=== PATIENT | female | born 1950 | race Caucasian/White ===

== ENCOUNTER → 2023-10-01 13:26 | Outpatient (REF) | payer MEDICARE, SELFPAY | LOC: HWRAD 13:26 | PROVIDERS: ATTENDING PHYSICIAN Internal Medicine Endocrinology, Diabetes & Metabolism; FAMILY PHYSICIAN Family Medicine | DX: Z12.31 Encounter for screening mammogram for malignant neoplasm of breast (principal); M81.0 Age-related osteoporosis without current pathological fracture | CPT/HCPCS: 77063; 77067; 77080 ==

== ENCOUNTER → 2023-11-05 12:38 | Outpatient (REF) | payer MEDICARE, SELFPAY | LOC: HWRAD 12:38 | PROVIDERS: ATTENDING PHYSICIAN Family Medicine | DX: J06.9 Acute upper respiratory infection, unspecified (principal); R05.1 Acute cough | CPT/HCPCS: 71046 ==

== ENCOUNTER → 2023-12-31 17:32 | Outpatient (REF) | payer MEDICARE, SELFPAY | LOC: PAVMRI 17:32 | PROVIDERS: ATTENDING PHYSICIAN Otolaryngology; FAMILY PHYSICIAN Family Medicine | DX: H90.42 Sensorineural hearing loss, unilateral, left ear, with unrestricted hearing on the contralateral side (principal) | CPT/HCPCS: 70551 ==

== ENCOUNTER → 2024-01-23 10:53 | Outpatient (REF) | payer MEDICARE, SELFPAY ==
[2024-01-23 12:28] LABS: ALT (SGPT) 27 U/L (0-35); AST (SGOT) 32 U/L (14-36); Alkaline Phosphatase 41 U/L (38-126); Blood Urea Nitrogen 17 mg/dl (7-17); Calcium 9.5 mg/dl (8.4-10.2); Carbon Dioxide 27 mmol/L (22-30); Chloride 106 mmol/L (98-107); Glucose 85 mg/dl (70-99); Potassium 4.3 mmol/L (3.5-5.1); Sodium 140 mmol/L (135-145); Total Bilirubin 0.6 mg/dl (0.2-1.3); Total Protein 6.5 g/dl (6.3-8.2); eGFR > 60.00
[2024-01-23 12:54] LABS: Free T4 1.59 ng/dl (0.78-2.19); Vitamin D, 25-OH*** 26.2 ng/mL (30-80)
[2024-01-23 13:07] LABS: TSH 2.14 uIU/ml (0.47-4.68)
[2024-01-24 13:09] LABS: Intact PTH 152.4 pg/ml (13.6-85.8)
== END ==
LOC: HWLAB 10:53
PROVIDERS: ATTENDING PHYSICIAN Internal Medicine Endocrinology, Diabetes & Metabolism; FAMILY PHYSICIAN Family Medicine
DX: M81.0 Age-related osteoporosis without current pathological fracture (principal); E03.9 Hypothyroidism, unspecified; E55.9 Vitamin D deficiency, unspecified
CPT/HCPCS: 36415; 80053; 82306; 83970; 84439; 84443

== ENCOUNTER → 2024-01-29 14:24 | Outpatient (REF) | payer MEDICARE, SELFPAY ==
[2024-01-29 16:05] LABS: % Basophils 0.6 % (0-2); % Immature Granulocytes 0.3 % (0-0.5); % Lymphocytes 30.4 % (20.5-51.1); % Monocytes 8.5 % (1.7-9.3); % Neutrophils 58.2 % (42.2-75.2); Absolute Eosinophils 0.1 10^3/uL (0-0.7); Absolute Lymphocytes 2.2 10^3/uL (1.2-3.4); Absolute Monocytes 0.6 10^3/uL (0.1-0.6); Absolute Neutrophils 4.1 10^3/uL (1.4-6.5); Hematocrit 41.8 % (37.0-47.0); Hemoglobin 13.8 g/dL (12.0-16.0); Mean Corpuscular Hgb 31.9 pg (27.0-31.0); Mean Corpuscular Volume 96.5 fL (81.0-99.0); Mean Platelet Volume 10.6 fL (7.4-10.4); Nucleated Red Blood Cells % 0 %; Platelet Count 253 10^3/uL (130-400); Red Blood Cell Count 4.33 10^6/uL (4.20-5.40); Red Cell Dist. Width 13.4 % (11.5-14.5); White Blood Cell Count 7.1 10^3/uL (4.8-10.8)
[2024-01-29 16:14] LABS: Erythrocyte Sed Rate 22 mm/hour (0-20)
[2024-01-29 16:20] LABS: ALT (SGPT) 29 U/L (0-35); AST (SGOT) 35 U/L (14-36); Albumin 4.1 g/dl (3.5-5.0); Alkaline Phosphatase 46 U/L (38-126); Blood Urea Nitrogen 8 mg/dl (7-17); Calcium 9.1 mg/dl (8.4-10.2); Carbon Dioxide 27 mmol/L (22-30); Chloride 104 mmol/L (98-107); Glucose 82 mg/dl (70-99); Potassium 3.9 mmol/L (3.5-5.1); Sodium 140 mmol/L (135-145); Total Bilirubin 0.5 mg/dl (0.2-1.3); Total Protein 6.8 g/dl (6.3-8.2); eGFR > 60.00
[2024-01-31 09:20] LABS: Hepatitis B Surface Antigen Negative (Negative)
[2024-01-31 09:38] LABS: Hepatitis B Core Ab, Total Negative (Negative); Hepatitis C Antibody Negative (Negative)
== END ==
LOC: REG 14:24
PROVIDERS: ATTENDING PHYSICIAN Physician Assistant; FAMILY PHYSICIAN Family Medicine
DX: K75.9 Inflammatory liver disease, unspecified (principal); M05.9 Rheumatoid arthritis with rheumatoid factor, unspecified; M51.36 Other intervertebral disc degeneration, lumbar region; M81.0 Age-related osteoporosis without current pathological fracture; R76.8 Other specified abnormal immunological findings in serum; Z11.1 Encounter for screening for respiratory tuberculosis; M54.9 Dorsalgia, unspecified
CPT/HCPCS: 36415; 72072; 72100; 80053; 85025; 85652; 86140; 86704; 86803; 87340

== ENCOUNTER 2024-02-17 10:15 | Inpatient (IN) | payer MEDICARE, SELFPAY ==
[2024-02-16] VITALS (16 sets, daily range): BP systolic 106–178; BP diastolic 59–109; BMI 28.6; BMI 27.8
[2024-02-16 14:31] LABS: % Basophils 0.1 % (0-2); % Eosinophils 0.1 % (0-6); % Immature Granulocytes 0.5 % (0-0.5); % Lymphocytes 13.3 % (20.5-51.1); % Monocytes 9.7 % (1.7-9.3); % Neutrophils 76.3 % (42.2-75.2); Absolute Immature Granulocytes 0.1 10^3/uL (0-0.05); Absolute Lymphocytes 1.9 10^3/uL (1.2-3.4); Absolute Monocytes 1.4 10^3/uL (0.1-0.6); Absolute Neutrophils 10.7 10^3/uL (1.4-6.5); Hematocrit 38.9 % (37.0-47.0); Mean Corp Hgb Conc. 33.4 g/dL (33.0-37.0); Mean Corpuscular Hgb 31.9 pg (27.0-31.0); Mean Corpuscular Volume 95.3 fL (81.0-99.0); Mean Platelet Volume 10.2 fL (7.4-10.4); Nucleated Red Blood Cells % 0 %; Platelet Count 248 10^3/uL (130-400); Red Blood Cell Count 4.08 10^6/uL (4.20-5.40); Red Cell Dist. Width 13.5 % (11.5-14.5)
[2024-02-16 14:33] LABS: Lactic Acid 1.5 mmol/L (0.7-2.0)
[2024-02-16 14:34] LABS: ALT (SGPT) 26 U/L (0-35); AST (SGOT) 38 U/L (14-36); Albumin 4.1 g/dl (3.5-5.0); Alkaline Phosphatase 55 U/L (38-126); Blood Urea Nitrogen 16 mg/dl (7-17); Calcium 9.1 mg/dl (8.4-10.2); Carbon Dioxide 25 mmol/L (22-30); Chloride 102 mmol/L (98-107); Estimated Creatinine Clearance 43 ml/min; Glucose 97 mg/dl (70-99); Potassium 3.5 mmol/L (3.5-5.1); Sodium 137 mmol/L (135-145); Total Bilirubin 0.9 mg/dl (0.2-1.3); Total Protein 6.8 g/dl (6.3-8.2); eGFR > 60.00
[2024-02-16] MEDS: TYLENOL 1000 MG PO (15:26)
[2024-02-16] MEDS: NSS 1000 IV ×2 (15:29→22:19)
--- NOTE | 2024-02-16 15:34 | ED.GENMED ---
History of Present Illness
General
Chief Complaint: Musculo-Skeletal Complaint
Source: patient
Exam Limitations: none
Time Seen by Provider: 02/16/24 14:14
Nursing documentation reviewed up to this point in time: agreed with
History of Present Illness
History of Present Illness:
73-year-old female with history of HTN, asthma presents stating 2 evenings ago she developed chills and fever. Her temperature max was 103.4 last night with chills. She states she has pain in the right rib and back area. She's had extreme fatigue
for a few weeks. She denies chest pain or trouble breathing, denies abdominal pain. Denies N/V/D/C. Denies shortness of breath.
Past History
Past History
ED Past Medical History: Asthma, HTN and Other (Patient has a history of hemorrhoids, diverticulitis, osteoporosis, neck pain and headaches, cataracts)
ED Past Surgical History: Appendectomy, Cholecystectomy, and Other (H. as had laser surgery for adhesions and laser surgery on 9, and cataract surgery)
Social History
Tobacco: Non-smoker
Alcohol: None
Personal:
Living: with family
Employment: Employed
Review of Systems
Review of Systems
Allergies reviewed?: Yes
All Other Systems: ROS reviewed and negative except as documented in HPI and ROS
Constitutional: Reports fever, fatigue and chills
EENT: Denies sore throat
Respiratory: Denies cough or trouble breathing
Cardiac: Denies chest pain, diaphoresis or palpitations
ABD/GI: Denies abdominal pain, nausea, vomiting, diarrhea, constipated or anorexia
: Denies dysuria, frequency or difficulty voiding
Musculoskeletal: Reports other (Pain right lateral and posterior ribs); Denies edema
Skin: Reports no symptoms
Neurological: Reports no symptoms
Phy Exam
Physical Exam
Physical Exam:
GENERAL: No acute distress. A&Ox3.
CONSTITUTIONAL: Temperature 100.6 for this examiner
EYES: Clear , conjunctivae normal
Neck: Supple
ENMT: moist mucus membranes, Pharynx nl
RESPIRATORY: Regular respirations, nonlabored, lungs clear. No cough
CARDIOVASCULAR: Regular rate and rhythm, no murmurs, no rubs.
GI: Soft, nontender, normal BS
MUSCULOSKELETAL: Moves with ease. Well perfused. No edema
SKIN: Warm, dry, pink
PSYCH: Normal mood and affect. Well kept, interactive and appropriate
NEUROLOGIC: Awake, alert and oriented. No focal neurological deficits
Course
Orders/Labs/Results
Orders:
Orders
02/16/24 Lunch
Cholesterol Lowering
At Your Request: Full Participation
Does patient need a safe tray?: No
Cholesterol Lowering: Sodium, 2 Gram
02/16/24 13:29
Electrocardiogram (*1) Urgent
Reason for Study: Chest Pain
EKG- Treatment ONCE
02/16/24 14:14
Complete Blood Count/With Diff Urgent
Comprehensive Metabolic Panel Urgent
Lactate Level [Lactic Acid] Urgent
TSH Urgent
Comment: ADD ON
Blood Culture Q30M
SERA Source: Blood/Venous
Specimen Description:
CR Chest - 2 Views Urgent
Comment:
Reason For Exam: R rib pain, fever
02/16/24 14:19
Blood Culture Q30M
SERA Source: Blood/Venous
Specimen Description:
02/16/24 14:49
Add On- LAB Urgent
Tests Added?: TSH
02/16/24 15:21
Acetaminophen [Tylenol] 1,000 mg PO NOW STA
02/16/24 15:28
0.9% Sodium Chloride 1000 ml [Nss] 1,000 ml IV BOLUS
02/16/24 16:00
CefTRIAXone [Rocephin] 1,000 mg IV Q24H
02/16/24 16:06
CefTRIAXone [Rocephin] 1,000 mg IV NOW STA
Doxycycline [Vibramycin] 100 mg PO NOW STA
02/16/24 18:51
Admit/Transfer Patient As Directed
Co-Sign Provider:
Level of Care: Observation services
Assign to:: Telemetry
Physician / Group: Nichole/Hospitalist
Diagnosis: RML CAP pneumonia
Reason for Telemetry: Arrhythmia
Date to Stop Telemetry: 02/19/24
Time to Stop Telemetry: 11:00
Reason for Hospitalization: RML CAP pneumonia
02/16/24 18:56
Code Status As Directed
Resuscitation Status: Full Code
02/16/24 18:59
Ketorolac [Toradol] 15 mg IV NOW STA
02/16/24 20:33
Ondansetron Injectable [Zofran] 4 mg IV NOW STA
02/16/24 21:04
0.9% Sodium Chloride 1000 ml [Nss] 1,000 ml IV 125 mls/hr
Acetaminophen [Tylenol] 1,000 mg PO BIDPRN PRN
Ipratropium/Albuterol Sulfate [Duoneb] 3 ml INH R Q4HPRN PRN
Ondansetron Injectable [Zofran] 4 mg IV Q6HPRN PRN
02/16/24 21:04
Urinalysis Reflex To Culture Routine
Date Specimen was Collected: 02/17/24
Time Specimen was Collected: 05:50
Legionella Urinary Antigen Routine
SERA Source: Urine
Specimen Description:
Respiratory Culture/Gram Stain Routine
SERA Source: Sputum
Specimen Description:
Activity As Directed
Activity Level: Out of Bed-Early Mobility
Intake/ Output As Directed
Frequency: Per unit guidelines
Vital Signs As Directed
Frequency: Per unit guidelines
Weight As Directed
Frequency: Once
Comment: on admission
Pulse Ox/cont/shift [RESP] Routine
Quantity: 1
Pulse Ox/spot Check [RESP] Routine
Quantity: 1
Pt Eval And Treat Routine
Activity Level: As Tolerated
DX Deep Vein Thrombosis Video Routine
02/16/24 22:00
Carvedilol [Coreg] 6.25 mg PO BID
Clorazepate Dipotassium [Tranxene] 7.5 mg PO HS
Flush (0.9% Sodium Chloride) [Flush (Nss)] See Dose Instructions IV PER PROTOCOL
02/17/24 05:53
Urine Microscopic Reflex Cult Routine
Urine Culture Routine
SERA Source: U
Specimen Description:
Date Specimen was Collected: 02/17/24
Time Specimen was Collected: 05:50
02/17/24 06:00
Doxycycline Hyclate [Vibramycin] 100 mg 0.9% Sodium Chloride 250 ml [Nss] 250 ml IV Q12H
Levothyroxine [Synthroid] 75 mcg PO DAILY @ 0600
02/17/24 06:05
Bladder Scan As Directed
Follow Bladder Retention/Intermittent Cath Algorithm?: Yes
PRN if no void in __ hours: 6
Frequency: Per Retention Algorithm
If Bladder Scan Result >: 400
then:: Straight cath
Straight Cath As Directed
Frequency: Per Retention Algorithm
Additional Instructions: straight cath as needed per acute urinary retention algorithm for 24 hrs
Additional Instructions: for bladder scan greater than 400 mL
02/17/24 07:04
Complete Blood Count/With Diff IN AM
Comprehensive Metabolic Panel IN AM
Magnesium Routine
02/17/24 08:00
Cholecalciferol (Vitamin D3) [VITAMIN D3 (cholecalciferol)] 25 mcg PO DAILY
Hydrochlorothiazide [Oretic] 12.5 mg PO DAILY
Olmesartan Medoxomil [Benicar] 40 mg PO DAILY
02/17/24 16:00
CefTRIAXone [Rocephin] 1,000 mg IV Q24H
Sterile Water [Sterile Water For Injection] 10 ml IV Q24H
02/17/24 18:00
Enoxaparin Sodium [Lovenox] 40 mg SC QPM
02/19/24 11:00
DC Protocol for Telemetry ONCE
Abnormal Lab Results
02/16/24 02/17/24 02/17/24
14:14 05:53 07:04
WBC 14.0 H 10^3/uL
(4.8-10.8)
RBC 4.08 L 10^6/uL 3.30 L 10^6/uL
(4.20-5.40) (4.20-5.40)
Hgb 10.5 L g/dL
(12.0-16.0)
Hct 31.4 L %
(37.0-47.0)
MCH 31.9 H pg 31.8 H pg
(27.0-31.0) (27.0-31.0)
MPV 10.5 H fL
(7.4-10.4)
Abs Immat Gran (auto) 0.1 H 10^3/uL 0.1 H 10^3/uL
(0-0.05) (0-0.05)
Absolute Neuts (auto) 10.7 H 10^3/uL 7.1 H 10^3/uL
(1.4-6.5) (1.4-6.5)
Absolute Monos (auto) 1.4 H 10^3/uL 1.1 H 10^3/uL
(0.1-0.6) (0.1-0.6)
Immature Gran % 0.7 H %
(0-0.5)
Neutrophils % 76.3 H %
(42.2-75.2)
Lymphocytes % 13.3 L % 18.7 L %
(20.5-51.1) (20.5-51.1)
Monocytes % 9.7 H % 10.4 H %
(1.7-9.3) (1.7-9.3)
Potassium 3.1 L mmol/L
(3.5-5.1)
Chloride 109 H mmol/L
(98-107)
Carbon Dioxide 19 L mmol/L
(22-30)
Calcium 7.7 L mg/dl
(8.4-10.2)
AST 38 H U/L
(14-36)
Total Protein 5.1 L D g/dl
(6.3-8.2)
Albumin 2.9 L g/dl
(3.5-5.0)
Urine Ketones 2+ A
(Negative)
Urine Bilirubin 1+ A
(Negative)
Leukocyte Esterase Rfl 1+ A
(Negative)
Urine Bacteria (Reflex) Few A
(Negative)
02/17/24 07:04
02/17/24 07:04
Vital Signs
Initial and Last Documented VS:
Initial Vital Signs
Temp Pulse Resp BP Pulse Ox
98.6 F 129 16 178/100 98
02/16/24 13:28 02/16/24 13:28 02/16/24 13:28 02/16/24 13:28 02/16/24 13:28
Last Documented Vital Signs
Temp Pulse Resp BP Pulse Ox
98.8 F 122 16 128/92 95
02/17/24 18:10 02/17/24 18:10 02/17/24 18:10 02/17/24 18:10 02/17/24 16:25
MDM/Problems Addressed
Differential Diagnosis Includes:
PNA,
MDM/Problems Addressed:
73-year-old female with history of HTN, asthma presents stating 2 evenings ago she developed chills and fever. Her temperature max was 103.4 last night with chills. She states she has pain in the right rib and back area. She's had extreme fatigue
for a few weeks. She denies chest pain or trouble breathing, denies abdominal pain. Denies N/V/D/C. Denies shortness of breath.
CBC: WBC 14.0
CMP: Normal
Chest x-ray showing right middle lobe pneumonia
Patient has been fatigued, febrile with chills, numerous drug allergies
She is allergic to many antibiotic and is very hesitant about them. I confirmed with her: Azithromycin (itching), Cephalosporins (mild rash) Cipro (acute renal failure), PCN (significant rash), per pharmacy search, she has taken Cefprozil po in the
past with no problem.
Consulted ID Dr. Kennedy who recommends Ceftriaxone and Doxycycline
Plan: Admit: IV antibiotics, blood cultures pending
Hospitalist notified of admission.
Chronic conditions affecting care: HTN
*Critical Care Note
Total Time (30-74mins, 75-104mins- exclusive of procedures): Not Applicable
ED Attending Note
-
Portions of this chart may have been created with voice recognition software.� Occasional wrong word or��sound alike� substitutions may have occurred due to the inherent limitations of voice recognition software.
Discharge Plan
Departure
Patient Disposition: Admit
Date of Disposition: 02/16/24
Time of Disposition: 15:50
Admit to: Med/Surg
Presentation/result/management discussed w/ accepting MD/DO: Hospitalist
Condition: Fair
Discharge Problem:
Right middle lobe pneumonia
Interventions
Interventions:
*Risk Screen - Suicide Last Done: 02/16/24 21:34
*General Assessment Last Done: 02/16/24 14:17
*Neglect/Abuse Screening Last Done: 02/16/24 14:17
ED- Fall Risk Assessment Last Done: 02/16/24 15:44
*ED COVID-19 Vaccine History Last Done: 02/16/24 13:28
*Nursing Disposition Last Done: 02/16/24 21:00
ED-Musculoskeletal Assessment Last Done: 02/16/24 14:17
Discharge Date and Time
Discharge Date/Time: 02/16/24 21:31
[2024-02-16] MEDS: ROCEPHIN 1000 MG IV (17:10)
[2024-02-16] MEDS: VIBRAMYCIN 100 MG PO (17:10)
--- NOTE | 2024-02-16 18:05 | HPS.HSE ---
Family Physician
-
Family Physician: Abiel Oliveira
Chief Complaint
-
fever, chills
History of Present Illness
The patient is a 73 yo woman with PMH significant for HTN, asthma, RA, osteoporosis, thoracic compression fracture and back pain, presents to ED due to chills and fever (103.4), associated with sharp pain in anterior right rib and also chronic back
pain (she's being worked up outpatient by Ortho for likely compression fracture). She was prescribed a Medrol dose pack for her back pain, however has not started taking it. She denies recent travel, no sick contacts. She had a slight cough today,
and nasal congestion with post-nasal drip. No n/v/d, no abdominal pain, no dysuria. Found on CXR to have RML PNA.
Given IV Rocephin, IV Doxy after ED provider called ID due to pt's multiple allergies to antibiotics
Medical History
Past Medical History
Past Medical History: Reports HTN, Hypothyroidism and Other (carpal tunnel syndrome, right eye blindness, insomnia, DJD)
Past Surgical History: Reports Appendectomy, Cholecystectomy, and Other (adhesion lysis, right eye nystagmus correction)
Social History
Tobacco: Non-smoker
Alcohol: None
Drug: None
Family History
Family History: Not pertinent
Allergies / Home Medications
Allergies reflects when Allergies were last updated in [employer].
Home Medications with original date entered in [employer]
Allergy/Medication List:
Allergies
Allergy/AdvReac Type Severity Reaction Status Date / Time
adhesive tape Allergy SKIN Verified 02/16/24 13:29
REDNESS
azithromycin Allergy Itching Verified 02/16/24 13:29
Cephalosporins Allergy Unknown Verified 02/16/24 13:29
ciprofloxacin Allergy acute Verified 02/16/24 13:29
kidney
failure
fentanyl Allergy Hives, Verified 02/16/24 13:29
itching
iodine Allergy Hives Verified 02/16/24 13:29
lidocaine Allergy chest Verified 02/16/24 13:29
tightness,
swelling
midazolam HCl [From Versed] Allergy hives, Verified 02/16/24 13:29
itching
morphine Allergy please Verified 02/16/24 13:29
remove as
an
allergy.
Nausea is
a side
effect.
penicillin V Allergy Rash Verified 02/16/24 13:29
Penicillins Allergy Rash Verified 02/16/24 13:29
propoxyphene Allergy 'crying' Verified 02/16/24 13:29
silver Allergy SKIN Verified 02/16/24 13:29
[From Tegaderm AG Mesh] REDNESS
cat gut suture Allergy severe Uncoded 02/16/24 13:29
swelling
after eye
surgery
Home Medications
acetaminophen 500 mg tablet (Tylenol Extra Strength) 1,000 mg PO BIDPRN PRN mild pain 01/31/18
carvedilol phosphate 20 mg capsule,[id number] multiphase 20 mg PO HS Blood pressure 08/01/20
cholecalciferol (vitamin D3) 25 mcg (1,000 unit) tablet 1,000 units PO DAILY Supplement 08/01/20
clorazepate dipotassium 7.5 mg tablet 7.5 mg PO HS Sleep 08/01/20
levothyroxine 75 mcg tablet 75 mcg PO DAILY Thyroid 08/01/20
olmesartan 40 mg-hydrochlorothiazide 12.5 mg tablet (Benicar HCT) 1 tab PO DAILY 02/16/24
Review of Systems
-
A 12 point ROS was completed and negative except as noted: Yes
Physical Exam
Vital Signs
Vital Signs
Temp Pulse Resp BP Pulse Ox
100 F 124 23 144/94 95
02/16/24 17:11 02/16/24 15:17 02/16/24 15:17 02/16/24 15:17 02/16/24 15:17
Physical Exam
General: Well Developed, Well Nourished, No Apparent Distress, Comfortable and Conversant
HEENT: NormoCephalic, Anicteric and Moist mucous membranes
Respiratory: Rhonchi (middle right lung)
Cardiac: Tachycardia
GI: Soft, Non Tender, Non Distended and Normal Bowel Sounds
Skin: Warm and Dry
Neuro: AO x 3, No Motor Deficits and Nonfocal/grossly intact
Psych: Calm
Laboratory Results
-
02/16/24 14:14
02/16/24 14:14
Laboratory Results
Lactic Acid 1.5 mmol/L (0.7-2.0) 02/16/24 14:14
Total Bilirubin 0.9 mg/dl (0.2-1.3) 02/16/24 14:14
AST 38 U/L (14-36) H 02/16/24 14:14
ALT 26 U/L (0-35) 02/16/24 14:14
Alkaline Phosphatase 55 U/L (38-126) 02/16/24 14:14
Impression/Plan
-
IMPRESSION:
The patient is a 73 yo woman with PMH significant for HTN, asthma, RA, osteoporosis, thoracic compression fracture and back pain, presents to ED due to chills and fever (103.4), associated with sharp pain in anterior right rib and also chronic back
pain (she's being worked up outpatient by Ortho for likely compression fracture). She was prescribed a Medrol dose pack for her back pain, however has not started taking it. She denies recent travel, no sick contacts. She had a slight cough today,
and nasal congestion with post-nasal drip. No n/v/d, no abdominal pain, no dysuria. Found on CXR to have RML PNA.
Given IV Rocephin, IV Doxy after ED provider called ID due to pt's multiple allergies to antibiotics
#Community acquired pneumonia, likely gram negative bacterial pneumonia
--IV Rocephin, IV Doxy
-blood cx, sputum cx
-PALOMA, SUA
-O2 if needed, currently stable on room air
#RA, not actively on immunosuppressants
-monitor
#HTN/ history of Tachycardia, low 100s here
-continue nightly long-acting Coreg
-monitor on tele overnight
-IVF, gentle hydration
#Hypothyroidism
-TSH 1.10
Full Code
DVT proph- Lovenox
[2024-02-16] MEDS: TORADOL 15 MG IV (19:55)
--- NOTE | 2024-02-16 20:32 | EDRN ---
Pt. vomited x 1 after eating turkey sandwich. Pt. reports feels slightly nauseas, but somewhat improved. Admitting messaged to place PRN antiemetic order.
[2024-02-16] MEDS: FLUSH (NSS) 1 FLUSH IV (22:19)
[2024-02-16] MEDS: COREG 6.25 MG PO (22:20)
[2024-02-16] MEDS: TRANXENE 7.5 MG PO (22:35)
[2024-02-17] VITALS (9 sets, daily range): BP systolic 106–153; BP diastolic 65–103; PULSE 103; O2SAT 96
--- NOTE | 2024-02-17 01:11 | PTCARENOTE ---
Pt aaox3 able to make her needs known. Pt provided with sputum culture cup & urine specimen cup. Pt oriented to room & call lee in reach.Plan of care continued.
[2024-02-17] MEDS: TYLENOL 1000 MG PO ×2 (03:31→15:48)
[2024-02-17] MEDS: VIBRAMYCIN 260 MG IV (05:45)
[2024-02-17] MEDS: SYNTHROID 75 MCG PO (05:47)
[2024-02-17 06:10] LABS: Urine Albumin Trace (Neg - Trace); Urine Bilirubin 1+ (Negative); Urine Character Clear (Clear); Urine Color Yellow; Urine Glucose Negative (Negative); Urine Ketone 2+ (Negative); Urine Leukocyte 1+ (Negative); Urine Nitrite Negative (Negative); Urine Occult Blood Negative (Negative); Urine Urobilinogen Negative (Neg - 1+)
[2024-02-17 06:26] LABS: Urine Bacteria Few (Negative); Urine Red Blood Cell 0-2 /HPF (0-2); Urine Squamous Cell >30 /LPF (Few)
[2024-02-17 07:31] LABS: % Basophils 0.3 % (0-2); % Eosinophils 0.4 % (0-6); % Immature Granulocytes 0.7 % (0-0.5); % Lymphocytes 18.7 % (20.5-51.1); % Monocytes 10.4 % (1.7-9.3); % Neutrophils 69.5 % (42.2-75.2); Absolute Immature Granulocytes 0.1 10^3/uL (0-0.05); Absolute Lymphocytes 1.9 10^3/uL (1.2-3.4); Absolute Monocytes 1.1 10^3/uL (0.1-0.6); Absolute Neutrophils 7.1 10^3/uL (1.4-6.5); Hematocrit 31.4 % (37.0-47.0); Hemoglobin 10.5 g/dL (12.0-16.0); Mean Corp Hgb Conc. 33.4 g/dL (33.0-37.0); Mean Corpuscular Hgb 31.8 pg (27.0-31.0); Mean Corpuscular Volume 95.2 fL (81.0-99.0); Mean Platelet Volume 10.5 fL (7.4-10.4); Nucleated Red Blood Cells % 0 %; Platelet Count 194 10^3/uL (130-400); Red Cell Dist. Width 13.4 % (11.5-14.5); White Blood Cell Count 10.3 10^3/uL (4.8-10.8)
[2024-02-17 08:05] LABS: ALT (SGPT) 16 U/L (0-35); AST (SGOT) 21 U/L (14-36); Albumin 2.9 g/dl (3.5-5.0); Alkaline Phosphatase 45 U/L (38-126); Blood Urea Nitrogen 17 mg/dl (7-17); Calcium 7.7 mg/dl (8.4-10.2); Carbon Dioxide 19 mmol/L (22-30); Chloride 109 mmol/L (98-107); Estimated Creatinine Clearance 63 ml/min; Glucose 84 mg/dl (70-99); Potassium 3.1 mmol/L (3.5-5.1); Sodium 136 mmol/L (135-145); Total Bilirubin 0.6 mg/dl (0.2-1.3); Total Protein 5.1 g/dl (6.3-8.2); eGFR > 60.00
[2024-02-17] MEDS: ORETIC 12.5 MG PO (09:51)
[2024-02-17] MEDS: BENICAR 40 MG PO (09:52)
[2024-02-17] MEDS: COREG 6.25 MG PO ×2 (09:52→21:19)
[2024-02-17] MEDS: VITAMIN D3 (cholecalciferol) 25 MCG PO (09:52)
[2024-02-17] MEDS: FLUSH (NSS) 1 FLUSH IV (09:53)
--- NOTE | 2024-02-17 10:14 | W.PN.HOSP.TC ---
Today's Communication/Plan
-
see A/P
Assessment / Plan
Assessment / Plan
HPI: 73 yo woman with PMH significant for HTN, asthma, RA, osteoporosis, thoracic compression fracture and back pain, presented to ED due to chills and fever (103.4), associated with sharp pain in her anterior right rib and also chronic back pain
(she's being worked up outpatient by Ortho for likely compression fracture).
She was prescribed a Medrol dose pack for her back pain, however has not started taking it. She denied recent travel, no sick contacts. She had a slight cough on DOA with nasal congestion and post-nasal drip.
Found on CXR to have RML PNA. Given IV Rocephin, IV Doxy in ED; ID called due to pt's multiple allergies to antibiotics
A/P:
# Sepsis POA due to community acquired pneumonia
CXR noted Right middle lobe pneumonia
Check COVID/Flu, sputum Cx, MRSA screen, procal
Follow blood Cx, urine culture,
Urine Legionella Ag negative
Cont IV Rocephin, IV Doxy
# R sided localized chest pain, suspect localized costochondritis
Check dedicated R rib XR to r/o rib fracture
# RA, not actively on immunosuppressants
monitor
# HTN
# history of Tachycardia
continue nightly long-acting Coreg
monitor on tele overnight
IVF, gentle hydration
# Hypothyroidism
TSH 1.10
Cont DEPLOYMENT ENGINEER Synthroid
# Essential HTN
Cont DEPLOYMENT ENGINEER Olmesartan-HCTZ with hold parameter
# Hypokalemia
replete K
Check mag level
Full Code
DVT proph- Lovenox
Anticipated Discharge: 24 - 48 hours
Subjective/Interval History
-
Date of Service: February 17, 2024
Objective Data
-
Labs:
Laboratory Results
02/17/24
07:04
WBC 10.3
Hgb 10.5 L
Hct 31.4 L
Plt Count 194 D
Sodium 136
Potassium 3.1 L
Chloride 109 H
Carbon Dioxide 19 L
BUN 17
Creatinine 0.6
Glucose 84
Calcium 7.7 L
Total Bilirubin 0.6
AST 21
ALT 16
Alkaline Phosphatase 45
Vital Signs:
Vital Signs
Temp Pulse Resp BP Pulse Ox
37.0 C 97 22 111/77 94
02/17/24 07:05 02/17/24 09:52 02/17/24 07:05 02/17/24 09:52 02/17/24 07:05
Review of Systems
-
Respiratory: Reports Other (R localized rib pain ); Denies Cough
Physical Exam
-
General: Well Developed, Well Nourished, No Apparent Distress, Comfortable and Conversant; Negative Respiratory Distress
HEENT: Normocephalic, Atraumatic, Nose Appears Normal and Ears Appear Normal; Negative Oxygen
Respiratory: Clear to Auscultation and Non Labored Respirations; Negative Accessory Resp Muscle Use
Cardiac: Regular Rhythm and S1/S2
GI: Soft, Nontender, Nondistended and Normal Bowel Sounds
Skin: Warm and Dry
Neuro: Awake, Alert, Oriented, AO x 3 and Nonfocal/Grossly Intact
Psych: Calm and Intact Judgement/Insight
Data Reviewed
-
Diagnostic Radiology: Image personally visualized and interpreted and Report Reviewed by me
Labs: Labs Reviewed by me
[2024-02-17 11:43] LABS: Procalcitonin 2.43 ng/ml (0.0-0.25)
[2024-02-17 11:43] LABS: COVID-19 Antigen Negative (Negative)
[2024-02-17] MEDS: KCL 40 MEQ PO (12:53)
[2024-02-17 15:06] LABS: Magnesium 1.8 mg/dl (1.6-2.3)
[2024-02-17] MEDS: ROCEPHIN 1000 MG IV (15:48)
[2024-02-17] MEDS: FLUSH (NSS) 2 FLUSH IV (15:49)
[2024-02-17] MEDS: STERILE WATER FOR INJECTION 10 ML IV (15:49)
--- NOTE | 2024-02-17 17:43 | CM ---
Zee is a 73yo female admitted from home with pneumonia. She lives with her as well as a friend and his dog who has been staying with them for the past several years since he lost his house. They live in a 2 story home with a basement.
Zee reports no needs at this time.
Plan: Return home with no services.
PCP: Dr. Oliveira
Pharmacy: [facility] in [place] on [facility]
[2024-02-17] MEDS: LOVENOX 40 MG SC (18:01)
[2024-02-17] MEDS: TRANXENE 7.5 MG PO (21:19)
[2024-02-17] MEDS: VIBRAMYCIN 100 MG PO (21:19)
[2024-02-18] VITALS (7 sets, daily range): BP systolic 111–155; BP diastolic 69–100; PULSE 107; O2SAT 96
[2024-02-18] MEDS: TYLENOL 1000 MG PO ×2 (02:00→20:45)
[2024-02-18] MEDS: SYNTHROID 75 MCG PO (05:41)
[2024-02-18 07:40] LABS: Hematocrit 33.1 % (37.0-47.0); Hemoglobin 11.2 g/dL (12.0-16.0); Mean Corp Hgb Conc. 33.8 g/dL (33.0-37.0); Mean Corpuscular Volume 94.6 fL (81.0-99.0); Mean Platelet Volume 10.7 fL (7.4-10.4); Platelet Count 230 10^3/uL (130-400); Red Cell Dist. Width 13.4 % (11.5-14.5)
[2024-02-18 08:13] LABS: Blood Urea Nitrogen 13 mg/dl (7-17); Calcium 8.6 mg/dl (8.4-10.2); Carbon Dioxide 22 mmol/L (22-30); Chloride 108 mmol/L (98-107); Estimated Creatinine Clearance 63 ml/min; Glucose 86 mg/dl (70-99); Potassium 3.7 mmol/L (3.5-5.1); Sodium 138 mmol/L (135-145); eGFR > 60.00
[2024-02-18] MEDS: VITAMIN D3 (cholecalciferol) 25 MCG PO (09:29)
[2024-02-18] MEDS: COREG 6.25 MG PO ×2 (09:29→20:45)
[2024-02-18] MEDS: ORETIC 12.5 MG PO (09:29)
[2024-02-18] MEDS: BENICAR 40 MG PO (09:29)
[2024-02-18] MEDS: VIBRAMYCIN 100 MG PO ×2 (09:29→20:45)
--- NOTE | 2024-02-18 10:16 | W.PN.HOSP.TC ---
Today's Communication/Plan
-
see A/P
Assessment / Plan
Assessment / Plan
HPI: 73 yo woman with PMH significant for HTN, asthma, RA, osteoporosis, thoracic compression fracture and back pain, presented to ED due to chills and fever (103.4), associated with sharp pain in her anterior right rib and also chronic back pain
(she's being worked up outpatient by Ortho for likely compression fracture).
She was prescribed a Medrol dose pack for her back pain, however has not started taking it. She denied recent travel, no sick contacts. She had a slight cough on DOA with nasal congestion and post-nasal drip.
Found on CXR to have RML PNA. Given IV Rocephin, IV Doxy in ED; ID called due to pt's multiple allergies to antibiotics
A/P:
# Sepsis POA due to community acquired pneumonia, without hypoxia
CXR noted Right middle lobe pneumonia
COVID/Flu negative, follow sputum Cx if able,
Follow MRSA screen, procal elevated at 2.43
blood culture negative, urine culture mixed luci
Urine Legionella Ag negative
Cont IV Rocephin, IV Doxy
# R sided localized chest pain, 2/2 Right middle lobe pneumonia
dedicated R rib XR neg for fracture or other significant bony abnormality
# RA, not actively on immunosuppressants
monitor
# HTN
# history of Tachycardia
continue nightly long-acting Coreg
monitor on tele overnight
IVF, gentle hydration
# Hypothyroidism
TSH 1.10
Cont DOOR MAKER Synthroid
# Essential HTN
Cont DOOR MAKER Olmesartan-HCTZ with hold parameter
# Hypokalemia
repleted K
Full Code
DVT proph- Lovenox
PT: no PT need
Anticipated Discharge: Within 24 hours
Subjective/Interval History
-
Date of Service: February 18, 2024
Objective Data
-
Labs:
Laboratory Results
02/18/24
06:51
WBC 9.0
Hgb 11.2 L
Hct 33.1 L
Plt Count 230
Sodium 138
Potassium 3.7
Chloride 108 H
Carbon Dioxide 22
BUN 13
Creatinine 0.6
Glucose 86
Calcium 8.6
Vital Signs:
Vital Signs
Temp Pulse Resp BP Pulse Ox
36.6 C 94 16 116/76 94
02/18/24 07:05 02/18/24 07:05 02/18/24 07:05 02/18/24 07:05 02/18/24 07:05
I&O
02/17/24 02/18/24 02/19/24
06:59 06:59 06:59
Intake Total 1800 / 1800
Balance 1800 / 1800
Review of Systems
-
Respiratory: Reports Other (R sided chest pain)
Physical Exam
-
General: Well Developed, Well Nourished, No Apparent Distress, Comfortable and Conversant; Negative Respiratory Distress
HEENT: Normocephalic, Atraumatic, Nose Appears Normal and Ears Appear Normal; Negative Oxygen
Respiratory: Clear to Auscultation and Non Labored Respirations; Negative Accessory Resp Muscle Use
Cardiac: Regular Rhythm and S1/S2
GI: Soft, Nontender, Nondistended and Normal Bowel Sounds
Skin: Warm and Dry
Neuro: Awake, Alert, Oriented and AO x 3
Psych: Calm and Intact Judgement/Insight
Data Reviewed
-
Diagnostic Radiology: Image personally visualized and interpreted and Report Reviewed by me
Labs: Labs Reviewed by me
[2024-02-18] MEDS: ROCEPHIN 1000 MG IV (16:41)
[2024-02-18] MEDS: LOVENOX 40 MG SC (16:41)
[2024-02-18] MEDS: STERILE WATER FOR INJECTION 10 ML IV (16:41)
[2024-02-18] MEDS: TRANXENE 7.5 MG PO (20:53)
[2024-02-19 03:24] VITALS: BP 110/70
[2024-02-19] MEDS: SYNTHROID 75 MCG PO (05:57)
[2024-02-19 06:46] LABS: Hematocrit 35.8 % (37.0-47.0); Hemoglobin 11.9 g/dL (12.0-16.0); Mean Corp Hgb Conc. 33.2 g/dL (33.0-37.0); Mean Corpuscular Hgb 31.4 pg (27.0-31.0); Mean Corpuscular Volume 94.5 fL (81.0-99.0); Mean Platelet Volume 10.5 fL (7.4-10.4); Platelet Count 240 10^3/uL (130-400); Red Blood Cell Count 3.79 10^6/uL (4.20-5.40); Red Cell Dist. Width 13.2 % (11.5-14.5); White Blood Cell Count 7.8 10^3/uL (4.8-10.8)
[2024-02-19 07:05] VITALS: BP 123/83
[2024-02-19 07:23] LABS: Blood Urea Nitrogen 14 mg/dl (7-17); Carbon Dioxide 27 mmol/L (22-30); Chloride 104 mmol/L (98-107); Estimated Creatinine Clearance 54 ml/min; Glucose 83 mg/dl (70-99); Potassium 3.8 mmol/L (3.5-5.1); Sodium 137 mmol/L (135-145); eGFR > 60.00
--- NOTE | 2024-02-19 08:23 | W.PN.HOSP.TC ---
Addendum entered and electronically signed by Sofie Edge MD 02/19/24 13:07:
total DC time 35 min
Original Note:
Today's Communication/Plan
-
DC home today
Assessment / Plan
Assessment / Plan
HPI: 73 yo woman with PMH significant for HTN, asthma, RA, osteoporosis, thoracic compression fracture and back pain, presented to ED due to chills and fever (103.4), associated with sharp pain in her anterior right rib and also chronic back pain
(she's being worked up outpatient by Ortho for likely compression fracture).
She was prescribed a Medrol dose pack for her back pain, however has not started taking it. She denied recent travel, no sick contacts. She had a slight cough on DOA with nasal congestion and post-nasal drip.
Found on CXR to have RML PNA. Given IV Rocephin, IV Doxy in ED; ID called due to pt's multiple allergies to antibiotics
A/P:
# Sepsis POA due to community acquired pneumonia, without hypoxia
CXR noted Right middle lobe pneumonia, repeat CXR outpt with PCP in 4 weeks
COVID/Flu negative, follow sputum Cx if able
MRSA screen neg
procal elevated at 2.43
blood culture negative, urine culture mixed luic
Urine Legionella Ag negative
IV Rocephin, IV Doxy -> Cefdinir and azithromycin for 5 more days (total 7 days)
# R sided localized chest pain 2/2 Right middle lobe pneumonia
dedicated R rib XR neg for fracture or other significant bony abnormality
# RA, not actively on immunosuppressants
monitor
# HTN
# history of Tachycardia
continue nightly long-acting Coreg
monitor on tele overnight
IVF, gentle hydration
# Hypothyroidism
TSH 1.10
Cont [facility] Synthroid
# Essential HTN
Cont [employer] Olmesartan-HCTZ with hold parameter
# Hypokalemia
repleted K
Full Code
DVT proph- Lovenox
PT: no PT need
Anticipated Discharge: Today
Subjective/Interval History
-
Date of Service: February 19, 2024
Objective Data
-
Labs:
Laboratory Results
02/19/24
06:02
WBC 7.8
Hgb 11.9 L
Hct 35.8 L
Plt Count 240
Sodium 137
Potassium 3.8
Chloride 104
Carbon Dioxide 27
BUN 14
Creatinine 0.7
Glucose 83
Calcium 9.0
Vital Signs:
Vital Signs
Temp Pulse Resp BP Pulse Ox
37.1 C 96 20 123/83 95
02/19/24 07:05 02/19/24 07:05 02/19/24 07:05 02/19/24 07:05 02/19/24 07:05
I&O
02/18/24 02/19/24 02/20/24
06:59 06:59 06:59
Intake Total 1800 / 1800 240 / 240
Balance 1800 / 1800 240 / 240
Review of Systems
-
Respiratory: Reports Other (R sided chest pain improved )
Physical Exam
-
General: Well Developed, Well Nourished, No Apparent Distress, Comfortable and Conversant; Negative Respiratory Distress
HEENT: Normocephalic, Atraumatic, Nose Appears Normal and Ears Appear Normal; Negative Oxygen
Respiratory: Clear to Auscultation and Non Labored Respirations; Negative Accessory Resp Muscle Use
Cardiac: Regular Rhythm and S1/S2
GI: Soft, Nontender, Nondistended and Normal Bowel Sounds
Skin: Warm and Dry
Neuro: Awake, Alert, Oriented and AO x 3
Psych: Calm and Intact Judgement/Insight
Data Reviewed
-
Diagnostic Radiology: Image personally visualized and interpreted and Report Reviewed by me
Labs: Labs Reviewed by me
[2024-02-19] MEDS: BENICAR 40 MG PO (08:49)
[2024-02-19] MEDS: COREG 6.25 MG PO (08:49)
[2024-02-19] MEDS: VIBRAMYCIN 100 MG PO (08:49)
[2024-02-19] MEDS: VITAMIN D3 (cholecalciferol) 25 MCG PO (08:49)
[2024-02-19] MEDS: ORETIC 12.5 MG PO (08:49)
[2024-02-19] MEDS: ZOFRAN 4 MG IV (10:09)
[2024-02-19 10:54] VITALS: BP 108/67
--- NOTE | 2024-02-19 12:55 | W.DCSUMMARY ---
Discharge Summary
Discharge Data
Date of Admission: 02/17/24
Date of Discharge: 02/19/24
-
Pending Results: No
Hospital Course
Principal Diagnosis:
Sepsis present on admission due to community acquired pneumonia/right middle lobe pneumonia (without hypoxia)
Right sided localized chest pain 2/2 Right middle lobe pneumonia
Chronic Diagnoses:�
Rheumatoid arthritis, not actively on immunosuppressants
Essential hypertension
Hypothyroidism on Synthroid
Consultations:�
None
Procedures:�
None
Clinical course:�
This is a 73 yo woman with past medical history as stated above, who presented with fever and right-sided chest pain.
Problem 1:
Sepsis due to community acquired pneumonia, without hypoxia.
Her CXR noted Right middle lobe pneumonia.
She can check repeat chest x-ray outpatient with the PCP in 4 weeks.
Her COVID/Flu tests were negative. Her MRSA screen was negative.
Her procalcitonin was noted to be elevated at 2.43.
She received IV Rocephin and doxycycline while in the hospital, and was discharged with Ceftin and azithromycin for 5 more days (total 7 days).
Problem 2:
Right sided localized chest pain due to Right middle lobe pneumonia.
As for the rest of her medical problems, they were stable during her hospital stay.
Discharge Plan
-
Patient Disposition: Home with Home Care
Discharge Diagnosis/Procedures: Community acquired pneumonia (Right middle lobe pneumonia) without hypoxia; Right sided localized chest pain due to Right middle lobe pneumonia
Condition: Good
Diet: As tolerated, Low Fat, Low Cholesterol and Low Sodium
Activity: As tolerated
Driving Restrictions: As prior to admission
Others Tests: CXR in 4 weeks with your PCP
Referrals:
Abiel Oliveira, DO [Family Provider] - in less than 1 week
Additional Discharge Medication Instructions: Continue antibiotics Cefdinir and azithromycin for 5 more days (total 7 days)
Your carvedilol phosphate has been changed to carvedilol 6.25 twice daily
Prescriptions:
New
carvedilol 6.25 mg Tablet
6.25 mg PO BID Qty: 60 0RF
cefdinir 300 mg capsule
300 mg PO BID 5 Days Qty: 10 0RF
azithromycin 500 mg tablet
500 mg PO DAILY 5 Days Qty: 5 0RF
Probiotic 3 billion cell capsule
3,000 mmu cells PO DAILY Qty: 10 0RF
ondansetron HCl 4 mg tablet
4 mg PO DAILY PRN (Reason: nausea and vomiting) 4 Days Qty: 14 0RF
Continued
acetaminophen [Tylenol Extra Strength] 500 MG tablet
1,000 mg PO BIDPRN PRN (Reason: mild pain)
levothyroxine 75 MCG tablet
75 mcg PO DAILY
clorazepate dipotassium 7.5 MG tablet
7.5 mg PO HS
cholecalciferol (vitamin D3) 1,000 UNITS tablet
1,000 units PO DAILY
olmesartan-hydrochlorothiazide [Benicar HCT] 40-12.5 mg Tablet
1 tab PO DAILY
Discontinued
carvedilol phosphate 20 MG capsule, ER multiphase 24 hr
20 mg PO HS
Discharge Orders:
Discharge Patient (As Directed); Ordered 02/19/24
Ordered By: Sofie Edge
Discharge Date and Time
Print Language: [place]
--- NOTE | 2024-02-19 13:28 | CM ---
Zee was discharged to home today. O2 was stopped, so discharge with no needs.
== END 2024-02-19 12:58 | disposition home or self-care (01) | DRG 871 ==
LOC: 4 EAST ACU 10:15
PROVIDERS: ADMITTING PHYSICIAN Internal Medicine; ATTENDING PHYSICIAN Internal Medicine; EMERGENCY PHYSICIAN Emergency Medicine; FAMILY PHYSICIAN Family Medicine
DX: A41.9 Sepsis, unspecified organism (principal); J18.9 Pneumonia, unspecified organism; M48.54XA Collapsed vertebra, not elsewhere classified, thoracic region, initial encounter for fracture; M06.9 Rheumatoid arthritis, unspecified; I10 Essential (primary) hypertension; E03.9 Hypothyroidism, unspecified; J45.909 Unspecified asthma, uncomplicated; M81.0 Age-related osteoporosis without current pathological fracture; M54.2 Cervicalgia; E87.6 Hypokalemia; Z79.890 Hormone replacement therapy; Z79.899 Other long term (current) drug therapy; Z90.49 Acquired absence of other specified parts of digestive tract; Z90.89 Acquired absence of other organs; Z88.0 Allergy status to penicillin; Z88.1 Allergy status to other antibiotic agents; Z88.5 Allergy status to narcotic agent; Z88.8 Allergy status to other drugs, medicaments and biological substances; Z11.52 Encounter for screening for COVID-19
CPT/HCPCS: 71046; 71101; 80048; 80053; 81003; 81015; 83605; 83735; 84145; 84443; 85025; 85027; 87040; 87070; 87086; 87449; 87502; 87811; 93005; 96361; 96374; 97162; 97166; 99285

== ENCOUNTER → 2024-03-11 10:40 | Outpatient (REF) | payer MEDICARE, SELFPAY ==
[2024-03-11 12:08] LABS: Urine Albumin Negative (Neg - Trace); Urine Bilirubin 1+ (Negative); Urine Character Clear (Clear); Urine Color Yellow; Urine Glucose Negative (Negative); Urine Ketone Negative (Negative); Urine Leukocyte Trace (Negative); Urine Nitrite Negative (Negative); Urine Occult Blood Negative (Negative); Urine Urobilinogen Negative (Neg - 1+)
[2024-03-11 12:56] LABS: % Basophils 0.7 % (0-2); % Eosinophils 1.6 % (0-6); % Immature Granulocytes 0.3 % (0-0.5); % Lymphocytes 27.6 % (20.5-51.1); % Monocytes 7.3 % (1.7-9.3); % Neutrophils 62.5 % (42.2-75.2); Absolute Basophils 0.1 10^3/uL (0-0.2); Absolute Eosinophils 0.1 10^3/uL (0-0.7); Absolute Lymphocytes 2.4 10^3/uL (1.2-3.4); Absolute Monocytes 0.6 10^3/uL (0.1-0.6); Absolute Neutrophils 5.4 10^3/uL (1.4-6.5); Hematocrit 37.4 % (37.0-47.0); Hemoglobin 12.7 g/dL (12.0-16.0); Mean Corpuscular Volume 94.2 fL (81.0-99.0); Mean Platelet Volume 10.8 fL (7.4-10.4); Nucleated Red Blood Cells % 0 %; Platelet Count 269 10^3/uL (130-400); Red Blood Cell Count 3.97 10^6/uL (4.20-5.40); Red Cell Dist. Width 13.6 % (11.5-14.5); White Blood Cell Count 8.6 10^3/uL (4.8-10.8)
[2024-03-11 13:07] LABS: Vitamin D, 25-OH*** 37.3 ng/mL (30-80)
[2024-03-11 13:34] LABS: ALT (SGPT) 16 U/L (0-35); AST (SGOT) 29 U/L (14-36); Albumin 4.2 g/dl (3.5-5.0); Alkaline Phosphatase 43 U/L (38-126); Blood Urea Nitrogen 18 mg/dl (7-17); Calcium 9.3 mg/dl (8.4-10.2); Carbon Dioxide 25 mmol/L (22-30); Chloride 105 mmol/L (98-107); Glucose 88 mg/dl (70-99); HDL Cholesterol 43 mg/dl; LDL Cholesterol, Calculated 92 mg/dl; Potassium 4.4 mmol/L (3.5-5.1); Sodium 141 mmol/L (135-145); Total Bilirubin 0.6 mg/dl (0.2-1.3); Total Cholesterol 180 mg/dl (50-199); Total Protein 6.8 g/dl (6.3-8.2); Triglyceride 228 mg/dl (10-149); Very Low Density Lipoprotein 45 mg/dl (0-30); eGFR > 60.00
[2024-03-11 14:10] LABS: Glycohemoglobin (HgbA1c) 5.6 % (4.0-5.6)
[2024-03-11 14:45] LABS: Urine Mucus Moderate; Urine Squamous Cell 16-20 /LPF (Few)
[2024-03-11 14:46] LABS: Urine Amorphous Seen; Urine Bacteria Few (Negative); Urine Red Blood Cell 0-2 /HPF (0-2)
== END ==
LOC: RAD 10:40
PROVIDERS: ATTENDING PHYSICIAN Family Medicine
DX: Z23 Encounter for immunization (principal); R91.1 Solitary pulmonary nodule; E21.3 Hyperparathyroidism, unspecified; I10 Essential (primary) hypertension; F41.9 Anxiety disorder, unspecified; R73.01 Impaired fasting glucose; M81.0 Age-related osteoporosis without current pathological fracture; M54.12 Radiculopathy, cervical region; M05.79 Rheumatoid arthritis with rheumatoid factor of multiple sites without organ or systems involvement; Z29.9 Encounter for prophylactic measures, unspecified; E03.9 Hypothyroidism, unspecified; J18.9 Pneumonia, unspecified organism
CPT/HCPCS: 36415; 71046; 80053; 80061; 81003; 81015; 82306; 83036; 84443; 85025

== ENCOUNTER → 2024-03-20 11:04 | Outpatient (REF) | payer MEDICARE, SELFPAY | LOC: HWRAD 11:04 | PROVIDERS: ATTENDING PHYSICIAN Family Medicine | DX: J18.9 Pneumonia, unspecified organism (principal) | CPT/HCPCS: 71046 ==

== ENCOUNTER → 2024-05-07 09:38 | Outpatient (REF) | payer MEDICARE, SELFPAY ==
[2024-05-07 13:36] LABS: Hepatitis B Surface Antigen Negative (Negative)
[2024-05-07 13:53] LABS: Hepatitis B Core Ab, Total Negative (Negative); Hepatitis B Surface Antibody Negative
[2024-05-07 14:09] LABS: Hepatitis A Antibody, Total Negative (Negative)
[2024-05-07 19:42] LABS: Hepatitis C Antibody Negative (Negative)
[2024-05-09 12:18] LABS: Quantiferon Mitogen minus NIL 9.95 IU/mL; Quantiferon NIL 0.05 IU/mL; Quantiferon Plus TB1 minus NIL 0.01 IU/mL (<=0.34); Quantiferon Plus TB2 minus NIL 0.04 IU/mL (<=0.34); Quantiferon TB Gold Plus Negative (Negative)
== END ==
LOC: HWLAB 09:38
PROVIDERS: ATTENDING PHYSICIAN Internal Medicine; FAMILY PHYSICIAN Family Medicine
DX: K75.9 Inflammatory liver disease, unspecified (principal); Z22.7 Latent tuberculosis
CPT/HCPCS: 86480; 86704; 86706; 86708; 86803; 87340

== ENCOUNTER → 2024-08-13 10:01 | Outpatient (REF) | payer MEDICARE, SELFPAY ==
[2024-08-15 07:54] LABS: Alternaria tenuis <0.10 kU/L (<=0.34); Aspergillus fumigatus <0.10 kU/L (<=0.34); Bermuda Grass <0.10 kU/L (<=0.34); Birch Tree <0.10 kU/L (<=0.34); Box Elder/Maple Tree <0.10 kU/L (<=0.34); Cat Epithelium/Dander <0.10 kU/L (<=0.34); Clam <0.10 kU/L (<=0.34); Common Pigweed <0.10 kU/L (<=0.34); Common/Short Ragweed <0.10 kU/L (<=0.34); Cottonwood Tree <0.10 kU/L (<=0.34); Crab <0.10 kU/L (<=0.34); Dermatophagoides farinae <0.10 kU/L (<=0.34); Dermatophagoides pteronyssinus <0.10 kU/L (<=0.34); Dog Dander <0.10 kU/L (<=0.34); German Cockroach <0.10 kU/L (<=0.34); Lobster <0.10 kU/L (<=0.34); Oak Tree <0.10 kU/L (<=0.34); Oyster <0.10 kU/L (<=0.34); Russian Thistle <0.10 kU/L (<=0.34); Scallop <0.10 kU/L (<=0.34); Sheep Sorrel Weed <0.10 kU/L (<=0.34); Shrimp <0.10 kU/L (<=0.34); Timothy Grass <0.10 kU/L (<=0.34); Walnut Tree <0.10 kU/L (<=0.34)
== END ==
LOC: HWLAB 10:01
PROVIDERS: ATTENDING PHYSICIAN Allergy & Immunology; FAMILY PHYSICIAN Family Medicine
DX: T50.995A Adverse effect of other drugs, medicaments and biological substances, initial encounter (principal); Z88.9 Allergy status to unspecified drugs, medicaments and biological substances; T78.02XA Anaphylactic reaction due to shellfish (crustaceans), initial encounter; J30.1 Allergic rhinitis due to pollen; J30.89 Other allergic rhinitis
CPT/HCPCS: 36415; 86003

== ENCOUNTER → 2024-09-22 14:06 | Outpatient (REF) | payer MEDICARE, SELFPAY | LOC: HWRAD 14:06 | PROVIDERS: ATTENDING PHYSICIAN Internal Medicine; FAMILY PHYSICIAN Family Medicine | DX: R07.81 Pleurodynia (principal); M15.0 Primary generalized (osteo)arthritis; Z51.81 Encounter for therapeutic drug level monitoring | CPT/HCPCS: 71250; 72052; 73523; 73560; 73565 ==

== ENCOUNTER → 2024-12-23 10:07 | Outpatient (REF) | payer MEDICARE, SELFPAY ==
[2024-12-23 11:22] LABS: % Basophils 0.5 % (0-2); % Eosinophils 0.9 % (0-6); % Immature Granulocytes 0.4 % (0-0.5); % Lymphocytes 36.5 % (20.5-51.1); % Monocytes 5.5 % (1.7-9.3); % Neutrophils 56.2 % (42.2-75.2); Absolute Eosinophils 0.1 10^3/uL (0-0.7); Absolute Monocytes 0.5 10^3/uL (0.1-0.6); Absolute Neutrophils 4.6 10^3/uL (1.4-6.5); Hematocrit 39.9 % (37.0-47.0); Hemoglobin 13.5 g/dL (12.0-16.0); Mean Corp Hgb Conc. 33.8 g/dL (33.0-37.0); Mean Corpuscular Hgb 32.5 pg (27.0-31.0); Mean Corpuscular Volume 96.1 fL (81.0-99.0); Nucleated Red Blood Cells % 0 %; Platelet Count 249 10^3/uL (130-400); Red Blood Cell Count 4.15 10^6/uL (4.20-5.40); Red Cell Dist. Width 13.4 % (11.5-14.5); White Blood Cell Count 8.2 10^3/uL (4.8-10.8)
[2024-12-23 12:03] LABS: ALT (SGPT) 26 U/L (0-35); AST (SGOT) 32 U/L (14-36); Alkaline Phosphatase 39 U/L (38-126); Blood Urea Nitrogen 18 mg/dl (7-17); Calcium 9.8 mg/dl (8.4-10.2); Carbon Dioxide 29 mmol/L (22-30); Chloride 104 mmol/L (98-107); Glucose 85 mg/dl (70-99); Potassium 4.3 mmol/L (3.5-5.1); Sodium 142 mmol/L (135-145); Total Bilirubin 0.7 mg/dl (0.2-1.3); Total Protein 6.4 g/dl (6.3-8.2); eGFR > 60.00
[2024-12-23 12:33] LABS: Erythrocyte Sed Rate 8 mm/hour (0-20)
[2024-12-23 12:35] LABS: TSH Reflex To Free T4 2.19 uIU/ml (0.47-4.68)
== END ==
LOC: HWLAB 10:07
PROVIDERS: ATTENDING PHYSICIAN Internal Medicine; FAMILY PHYSICIAN Family Medicine
DX: R91.1 Solitary pulmonary nodule (principal); I10 Essential (primary) hypertension; R73.01 Impaired fasting glucose; E03.9 Hypothyroidism, unspecified; M05.9 Rheumatoid arthritis with rheumatoid factor, unspecified; Z51.81 Encounter for therapeutic drug level monitoring
CPT/HCPCS: 36415; 80053; 84443; 85025; 85652; 86140

== ENCOUNTER → 2025-01-11 09:47 | Outpatient (REF) | payer MEDICARE, SELFPAY | LOC: HWRAD 09:47 | PROVIDERS: ATTENDING PHYSICIAN Internal Medicine | DX: J06.9 Acute upper respiratory infection, unspecified (principal) | CPT/HCPCS: 71046 ==

== ENCOUNTER → 2025-03-24 10:35 | Outpatient (REF) | payer MEDICARE, SELFPAY ==
[2025-03-24 12:13] LABS: Hematocrit 42.1 % (37.0-47.0); Hemoglobin 14.1 g/dL (12.0-16.0); Mean Corp Hgb Conc. 33.5 g/dL (33.0-37.0); Mean Corpuscular Volume 97.0 fL (81.0-99.0); Nucleated Red Blood Cells % 0 %; Platelet Count 232 10^3/uL (130-400); Red Cell Dist. Width 13.0 % (11.5-14.5)
[2025-03-24 12:28] LABS: ALT (SGPT) 23 U/L (0-35); AST (SGOT) 24 U/L (14-36); Albumin 4.6 g/dl (3.5-5.0); Alkaline Phosphatase 25 U/L (38-126); Blood Urea Nitrogen 18 mg/dl (7-17); Calcium 9.8 mg/dl (8.4-10.2); Carbon Dioxide 28 mmol/L (22-30); Chloride 107 mmol/L (98-107); Glucose 97 mg/dl (70-99); Potassium 4.6 mmol/L (3.5-5.1); Sodium 140 mmol/L (135-145); Total Protein 6.7 g/dl (6.3-8.2); eGFR > 60.00
[2025-03-24 12:33] LABS: C-Reactive Protein 13.70 mg/L (0.0-10.00)
== END ==
LOC: HWLAB 10:35
PROVIDERS: ATTENDING PHYSICIAN Internal Medicine; FAMILY PHYSICIAN Nurse Practitioner Family
DX: M05.9 Rheumatoid arthritis with rheumatoid factor, unspecified (principal); Z51.81 Encounter for therapeutic drug level monitoring
CPT/HCPCS: 36415; 80053; 85025; 85652; 86140

== ENCOUNTER → 2025-04-13 08:53 | Outpatient (REF) | payer MEDICARE, SELFPAY ==
[2025-04-13 11:22] LABS: Urine Character Slightly Cloudy (Clear)
[2025-04-13 11:47] LABS: HDL Cholesterol 50 mg/dl; LDL Cholesterol, Calculated 126 mg/dl; Very Low Density Lipoprotein 31 mg/dl (0-30)
[2025-04-13 11:50] LABS: Glycohemoglobin (HgbA1c) 5.7 % (4.0-5.6)
[2025-04-13 12:14] LABS: Urine Squamous Cell 26-30 /LPF (Few)
[2025-04-13 12:15] LABS: Urine White Cell 40-50 /HPF (0-5)
== END ==
LOC: HWLAB 08:53
PROVIDERS: ATTENDING PHYSICIAN Family Medicine; FAMILY PHYSICIAN Nurse Practitioner Family
DX: R91.1 Solitary pulmonary nodule (principal); I10 Essential (primary) hypertension; F41.9 Anxiety disorder, unspecified; R73.01 Impaired fasting glucose; M54.12 Radiculopathy, cervical region; M05.79 Rheumatoid arthritis with rheumatoid factor of multiple sites without organ or systems involvement; Z00.01 Encounter for general adult medical examination with abnormal findings
CPT/HCPCS: 36415; 80061; 81003; 81015; 83036; 87086

== ENCOUNTER → 2025-05-11 13:17 | Outpatient (REF) | payer MEDICARE, SELFPAY ==
[2025-05-11 16:01] LABS: Urine Character Clear (Clear)
== END ==
LOC: HWWDC 13:17
PROVIDERS: ATTENDING PHYSICIAN Family Medicine; FAMILY PHYSICIAN Nurse Practitioner Family
DX: Z12.31 Encounter for screening mammogram for malignant neoplasm of breast (principal); R80.9 Proteinuria, unspecified; Z13.31 Encounter for screening for depression; R31.9 Hematuria, unspecified
CPT/HCPCS: 36415; 77063; 77067; 81003; 82784; 83520; 83521; 84155; 84156; 84165; 86334; 86335

== ENCOUNTER → 2025-06-23 09:52 | Outpatient (REF) | payer MEDICARE, SELFPAY ==
[2025-06-23 12:13] LABS: Hematocrit 41.5 % (37.0-47.0); Hemoglobin 14.0 g/dL (12.0-16.0); Mean Corp Hgb Conc. 33.7 g/dL (33.0-37.0); Mean Corpuscular Volume 95.4 fL (81.0-99.0); Nucleated Red Blood Cells % 0 %; Platelet Count 282 10^3/uL (130-400); Red Cell Dist. Width 12.2 % (11.5-14.5)
[2025-06-23 12:49] LABS: ALT (SGPT) 23 U/L (0-35); AST (SGOT) 29 U/L (14-36); Albumin 4.4 g/dl (3.5-5.0); Alkaline Phosphatase 39 U/L (38-126); Blood Urea Nitrogen 17 mg/dl (7-17); Calcium 9.8 mg/dl (8.4-10.2); Carbon Dioxide 28 mmol/L (22-30); Chloride 104 mmol/L (98-107); Glucose 98 mg/dl (70-99); Potassium 4.4 mmol/L (3.5-5.1); Sodium 137 mmol/L (135-145); Total Protein 7.1 g/dl (6.3-8.2); eGFR > 60.00
[2025-06-23 12:52] LABS: C-Reactive Protein 17.20 mg/L (0.0-10.00)
== END ==
LOC: HWLAB 09:52
PROVIDERS: ATTENDING PHYSICIAN Internal Medicine; FAMILY PHYSICIAN Nurse Practitioner Family
DX: M05.9 Rheumatoid arthritis with rheumatoid factor, unspecified (principal); Z51.81 Encounter for therapeutic drug level monitoring
CPT/HCPCS: 36415; 80053; 85025; 85652; 86140

== ENCOUNTER → 2025-07-21 09:45 | Outpatient (REF) | payer MEDICARE, SELFPAY | LOC: HWRAD 09:45 | PROVIDERS: ATTENDING PHYSICIAN Internal Medicine; FAMILY PHYSICIAN Nurse Practitioner Family | DX: R10.10 Upper abdominal pain, unspecified (principal) | CPT/HCPCS: 76705 ==